=== PATIENT | male | born 1935 | race Caucasian/White ===

== ENCOUNTER 2017-07-29 11:59 | Emergency (ER) | payer MEDICARE ==
[~2017-07-29 11:59] MED LIST: ASPI81TA82 PO; CALA180T PO; DOXA1 PO; HYDR-3533 PO; HYDR12.56 PO; LOSA25TA31 PO; METF-324 PO; NOVO7030P2 SQ; OCUVTAB PO; OMEP20TA PO; PERC5TAB12 PO; PROS5TAB2 PO; SIMV20TA PO; TAB-TAB PO
[2017-07-29 12:03] VITALS: BP 128/58; PULSE 73; RESP 16; TEMP 98.7; O2SAT 98
--- NOTE | 2017-07-29 12:44 | PD ---
HPI Chief Complaint: cough Time Seen by Provider: 12:18 Travel History International Travel<30 days: No Contact w/Intl Traveler<30days: No History of Present Illness HPI This is an 82-year-old male who presents to the emergency department with a cough that has been persistent and worsening over the past 3 days, intermittent. He says when he has the cough it does not go away for 15-20 minutes and he has trouble catching his breath. He says he starting to get some pain under both sides of his ribs. He denies any associated fever or chills. He denies any rhinorrhea. He has had some sore throat which he attributes to being dry from coughing. He went to the pharmacy yesterday and was prescribed an antihistamine which he is taken but that has not helped. He denies any mucus production and denies any swelling in his legs or orthopnea. PFSH Past Medical History High Cholesterol: Yes Diabetes: Yes (TYPE 2 ) Diminished Hearing: No Diverticulitis: Yes GERD: Yes Hypertension: Yes Immunizations Current: Yes Past Surgical History Abdominal Surgery: Yes (PERFORATED BOWEL WITH COLOSTOMY AND REVERSAL) Other Surgery: Yes (FISTULA REPAIRS X 2) Social History Alcohol Use: Yes (social/daily) Tobacco Use: No (QUIT 05/2012) Substance Use: No Allergies-Medications (Allergen,Severity, Reaction): Coded Allergies: No Known Allergies (Unverified Adverse Reaction, Unknown, 07/29/17) Reported Meds & Prescriptions Reported Meds & Active Scripts Active Reported Doxazosin (Doxazosin Mesylate) 8 Mg Tab 8 Mg PO DAILY Simvastatin 20 Mg Tab 20 Mg PO DAILY Aspirin 81 Mg Chew 81 Mg CHEW DAILY Finasteride 5 Mg Tab 5 Mg PO DAILY Do not crush. Hydrochlorothiazide 25 Mg Tab 25 Mg PO DAILY Losartan (Losartan Potassium) 100 Mg Tab 100 Mg PO DAILY Ocuvite (Multiple Vitamins W/ Minerals) 1 Tab 1 Tab PO DAILY Omeprazole 20 Mg Tab 20 Mg PO DAILY Metformin (Metformin HCl) 500 Mg Tab 1,000 Mg PO BIDPC Verapamil (Verapamil HCl) 80 Mg Tab 180 Mg PO DAILY Novolog Flexpen Inj (Insulin Aspart) 300 Unit/3 Ml Pen 10 Units SQ BREAKFAST AND DINNER Novolog Flexpen Inj (Insulin Aspart) 300 Unit/3 Ml Pen 10 Units SQ BID Lantus Solostar Pen Inj (Insulin Glargine) 300 Unit/3 Ml Pen 32 Units SQ DAILY Review of Systems Except as stated in HPI: all other systems reviewed are Neg Physical Exam Narrative GENERAL:Well appearing, no acute distress SKIN: Focused skin assessment warm and dry. HEAD: Atraumatic. Normocephalic. EYES: Pupils equal and round. No injection or drainage. ENT: Moist mucous membranes NECK: Trachea midline. CARDIOVASCULAR: Regular rate and rhythm. No murmur appreciated. RESPIRATORY: Clear to auscultation. Breath sounds equal bilaterally. GASTROINTESTINAL: Abdomen soft, non-tender, nondistended. MUSCULOSKELETAL: No obvious deformities. NEUROLOGICAL: Awake and alert. No obvious cranial nerve deficits. Moving all extremities. PSYCHIATRIC: Appropriate mood and affect; insight and judgment normal. Data Data Last Documented VS Vital Signs Date Time Temp Pulse Resp B/P (MAP) Pulse Ox O2 Delivery O2 Flow Rate FiO2 07/29/17 12:03 98.7 73 16 128/58 (81) 98 Orders Orders Chest, Pa & Lat (07/29/17 ) [facility] Medical Decision Making Medical Screen Exam Complete: Yes Emergency Medical Condition: Yes Interpretation(s) Afebrile, no tachycardia, normotensive Differential Diagnosis Bronchitis, pneumonia, allergic rhinitis, congestive heart failure Narrative Course This is an 82-year-old male who presents to the emergency department with a cough that has been going on for several days. He has normal vital signs. Chest x-ray demonstrates a possible consolidation in the lingula. I think it is reasonable to do a trial of azithromycin. Otherwise I think is appropriate for outpatient management and follow-up with his primary care physician. Diagnosis Primary Impression: Lingular pneumonia Patient Instructions: General Instructions Additional Instructions: If you develop severe chest pain, shortness of breath, sweating, lightheadedness , dizziness or difficulty breathing return to the emergency department immediately. Followup with your primary care physician in 2-3 days if your symptoms are not resolved. Med/Other Pt SpecificInfo: Prescription(s) given Scripts Promethazine-Codeine Liq (Promethazine-Codeine Liq) 6.25-10 Mg/5 Ml Syrp 5 ML PO Q6H Y for COUGH AND/OR COLD SYMPTOMS, #50 ML 0 Refills Prov: Jo Ponce MD 07/29/17 Azithromycin (Azithromycin) 250 Mg Tab 250 MG PO DIRECTED for Infection, #6 TAB 0 Refills Take 2 tabs (500 mg) on day 1 then 1 tab daily x 4 days. Prov: Jo Ponce MD 07/29/17 Disposition: 01 DISCHARGE HOME Condition: Stable Jo Ponce MD Jul 29, 2017 12:44
[2017-07-29] MEDS ORDERED: VERA80TA PO (12:51)
[2017-07-29] MEDS ORDERED: HYDR25TA5 PO (12:51)
[2017-07-29] MEDS ORDERED: FINA5TAB2 PO (12:51)
[2017-07-29] MEDS ORDERED: LOSA100T PO (12:51)
[2017-07-29] MEDS ORDERED: ASPI-516 CHEW (12:51)
[2017-07-29] MEDS ORDERED: OMEP20TA93 PO (12:51)
[2017-07-29] MEDS ORDERED: NOVOINJ3 SQ ×2 (12:51)
[2017-07-29] MEDS ORDERED: LANTINJ SQ (12:51)
[2017-07-29] MEDS ORDERED: OCUVTAB PO (12:51)
[2017-07-29] MEDS ORDERED: DOXA1TAB43 PO (12:51)
[2017-07-29] MEDS ORDERED: SIMV20TA PO (12:51)
[2017-07-29] MEDS ORDERED: METF500T PO (12:51)
--- NOTE | 2017-07-29 13:07 | RADRPT ---
EXAM DATE/TIME: 07/29/2017 12:52 [facility] COMPARISON: CHEST PA & LAT, October 25, 2015, 7:49. INDICATIONS : Persistent cough x 3 days worsening. Bilateral rib pain due to coughing MEDICAL HISTORY : Hypercholesterolemia. Hypertension Diabetes mellitus type II. Diverticulitis. Former smoker. SURGICAL HISTORY : Colostomy due to perforated bowel with reversal. Fistula repair x 2. ENCOUNTER: Initial ACUITY: 3 days PAIN SCORE: 5/10 LOCATION: Bilateral chest FINDINGS: PA and lateral views of the chest. Mild patchy opacity in the lingula. The lungs are otherwise clear. Cardiomediastinal silhouette within normal limits. No evidence of pleural effusion or pneumothorax. CONCLUSION: Atelectasis versus mild consolidation in the lingula. Phiilp Schaffer MD on July 29, 2017 at 13:03 Board Certified Radiologist. This report was verified electronically.
[2017-07-29] MEDS ORDERED: AZIT250T3 PO (13:19)
[2017-07-29] MEDS ORDERED: PROM6.256 PO (13:19)
== END 2017-07-29 14:19 | disposition home or self-care (01) ==
LOC: PHED 11:59
DX: J18.8 Other pneumonia, unspecified organism (principal); E11.9 Type 2 diabetes mellitus without complications; E78.00 Pure hypercholesterolemia, unspecified; I10 Essential (primary) hypertension; K21.9 Gastro-esophageal reflux disease without esophagitis; Z79.4 Long term (current) use of insulin; Z87.891 Personal history of nicotine dependence
CPT/HCPCS: 71046; 99283